=== PATIENT | male | born 1960 | race African-American/Black ===

== ENCOUNTER 2020-08-10 01:09 | Observation (INO) | payer OTHER ==
[2020-08-10 02:16] LABS: #Basophils 0.1 thou/uL (0.0-0.2); #Eosinphils 0.2 thou/uL (0.0-0.7); #Lymphocytes 1.4 thou/uL (1.20-3.40); #Monocytes 0.7 thou/uL (0.11-0.59); #Neutrophils 2.4 thou/uL (1.40-6.50); %Basophils 1.2 % (0.0-1.0); %Eosinophils 3.8 % (0.0-10.0); %Lymphocytes 29.4 % (21.0-51.0); %Monocytes 14.6 % (0.0-10.0); Hemoglobin 10.2 g/dL (14.0-18.0); Mean Corpuscular HGB CONC 30.9 g/dL (32.0-36.0); Mean Corpuscular Hemoglobin 24.9 pg (27.0-31.0); Mean Corpuscular Volume 80.5 fL (78.0-98.0); Mean Platelet Volume 11.1 fL (7.4-10.4); Platelet Count 212 thou/uL (130-400); RBC Distribution Width 18.3 % (11.5-14.5); Red Blood Cell (RBC) Count 4.09 mill/uL (4.70-6.10); White Blood Cell (WBC) Count 4.7 thou/uL (4.8-10.8)
[2020-08-10 02:35] LABS: ALT (SGPT) 27 U/L (8-55); AST (SGOT) 20 U/L (5-34); Acetaminophen Less than 6.0 mcg/mL (10.0-30.0); Albumin 3.9 g/dL (3.4-4.8); Alcohol Less than 10 mg/dL (Less than 10); Alkaline Phosphatase 60 U/L (40-110); Anion Gap 14 mmol/L (10-20); BUN (Urea Nitrogen) 9 mg/dL (8.4-25.7); Bilirubin, Total 0.2 mg/dL (0.2-1.2); Calc. Creatinine Clearance 0 mL/min (70-130); Calcium 9.2 mg/dL (7.8-10.44); Carbon Dioxide 23 mmol/L (23-31); Chloride 107 mmol/L (98-107); Globulin 3.4 g/dL (2.4-3.5); Glucose 101 mg/dL (80-115); Magnesium 1.9 mg/dL (1.6-2.6); Protein, Total 7.3 g/dL (5.8-8.1); Salicylate Less than 8.0 mg/dL (15.0-30.0); Sodium 140 mmol/L (136-145)
[2020-08-10] MEDS ORDERED: Aspirin 325 MG TAB ONE (02:54)
[2020-08-10 03:57] LABS: Bacteria/HPF 3+ HPF (None Seen); Bilirubin Negative (Negative); Blood, Urine Negative (Negative); Clarity Clear (Clear); Glucose, Urine (Dipstick) Normal (Negative); Ketone, Urine Negative (Negative); Leukocyte 250 Leu/uL (Negative); Nitrite Negative (Negative); Protein, Urine (Dipstick) Negative (Neg-Trace); RBC/HPF 0-3 HPF (0-3); Specific Gravity, Urine 1.005 (1.002-1.036); Squamous Epithelial 0-3 HPF (0-3); Urobilinogen Normal mg/dL (Less than 2); WBC/HPF 21-50 HPF (0-3); pH, Urine 6.5 (5.0-9.0)
[2020-08-10 04:22] LABS: Amphetamine Not Detected (NotDetected); Barbiturates Screen Not Detected (NotDetected); Benzodiazepine Screen Not Detected (NotDetected); Cocaine Metabolite Screen Not Detected (NotDetected); Medtox Control Line Valid? VALID (VALID); Medtox Reader # READER 1; Methadone Not Detected (NotDetected); Methamphetamine Not Detected (NotDetected); Opiate Screen Not Detected (NotDetected); Oxycodone Screen Not Detected (NotDetected); Phencyclidine (PCP) Not Detected (NotDetected); THC/Cannabinoid Screen Not Detected (NotDetected); Tricyclic Screen Not Detected (NotDetected)
[2020-08-10] MEDS ORDERED: cloNIDine 0.1 MG TAB PO PRN (04:35)
[2020-08-10] MEDS ORDERED: Guaifenesin DM 100-10/5 ML UDCUP PO PRN (04:35)
[2020-08-10] MEDS ORDERED: Labetalol HCl 100 MG/20 ML VIAL SLOW IVP PRN (04:35)
[2020-08-10] MEDS ORDERED: Promethazine HCl 12.5 MG in Sodium Chloride 0.9% 50 ML IVPB PRN (04:35)
[2020-08-10] MEDS ORDERED: Ondansetron PF 4 MG/2 ML Vial IVP PRN (04:35)
[2020-08-10] MEDS ORDERED: hydrALAZINE 20 MG/ML VIAL SLOW IVP PRN (04:35)
--- NOTE | 2020-08-10 04:36 | PDOC.HHP ---
Hospitalist HPI - History of Present Illness Syncope, altered mental status History of Present Illness: Patient is a 60 year old male with PMH HTN presenting from intermediate for altered mental status and syncope. Today, patient lost consciousness suddenly for a period of about 20-30 minutes, he reports this was observed by cellmates, he lay down to sleep and woke up and was found acting strange by his cell mates. The patient was unaware of where he was and was diaphoretic and found to be very hypertensive at the intermediate. Patient was altered until EMS got there and was brought to emergency department where he then cleared. Patient has no known seizure history, no history denies any history of alcoholism or alcohol withdrawal. he denies prodrome. Patient denies chest pain/shortness of breath/dizziness. BP was checked and was 211/100 at the time. He was alert and oriented in ED, nitropaste applied, patient given ASA, recommended for admission. Hospitalist ROS - Review of Systems Constitutional: denies: fever, chills, sweats, weakness, malaise, other Eyes: denies: pain, vision change, conjunctivae inflammation, eyelid inflammation, redness, other ENT: denies: ear pain, ear discharge, nose pain, nose discharge, nose congestion, mouth pain, mouth swelling, throat pain, throat swelling, other Respiratory: denies: cough, dry, shortness of breath, hemoptysis, SOB with excertion, pleuritic pain, sputum, wheezing, other Cardiovascular: denies: chest pain, palpitations, orthopnea, paroxysmal noc. dyspnea, edema, light headedness, other Gastrointestinal: denies: nausea, vomiting, abdominal pain, diarrhea, consti pation, melena, hematochezia, other Genitourinary: denies: dysuria, frequency, incontinence, hematuria, retention, other Musculoskeletal: denies: neck pain, shoulder pain, arm pain, back pain, hand pain, leg pain, foot pain, other Skin: denies: rash, lesions, danisha, bruising, other Neurological: reports: other (syncope). denies: weakness, numbness, incoordination, change in speech, confusion, seizures All other systems reviewed; all pertinent +/- noted in HPI/Subj Hospitalist History - Past Medical History Other Medical History: enlarged prostate, HTN - Past Surgical History Other Surgical History: PROSTATE REMOVAL, RIGHT ARM SX. - Family History Family History: reports: no pertinent history - Social History Smoking Status: Current some day smoker Alcohol: reports: None Drugs: reports: none - Exam General Appearance: NAD, awake alert Eye: PERRL, anicteric sclera ENT: normocephalic atraumatic, no oropharyngeal lesions, moist mucosa Neck: supple, symmetric, no JVD, no thyromegaly, no lymphadenopathy, no carotid bruit Heart: no murmur, no gallops, no rubs, normal peripheral pulses Heart - other findings: bradycardia Respiratory: CTAB, no wheezes, no rales, no ronchi, normal chest expansion, no tachypnea, normal percussion Gastrointestinal: soft, non-tender, non-distended, normal bowel sounds, no palpable masses, no hepatomegaly, no splenomegaly, no bruit Extremities: no cyanosis, no clubbing, no edema Skin: normal turgor, no lesions, no rashes Neurological: cranial nerve grossly intact, normal sensation to touch, no weakness, no focal deficits, no new deficit Musculoskeletal: normal tone, normal strength, no muscle wasting Psychiatric: normal affect, normal behavior, A&O x 3 Hospitalist Results - Labs Result Diagrams: 08/10/20 01:44 08/10/20 01:44 Lab results: WBC 4.7 thou/uL (4.8-10.8) L 08/10/20 01:44 Hgb 10.2 g/dL (14.0-18.0) L 08/10/20 01:44 Hct 32.9 % (42.0-52.0) L 08/10/20 01:44 MCV 80.5 fL (78.0-98.0) 08/10/20 01:44 Plt Count 212 thou/uL (130-400) 08/10/20 01:44 Neutrophils % 51.0 % (42.0-75.0) 08/10/20 01:44 Sodium 140 mmol/L (136-145) 08/10/20 01:44 Potassium 4.0 mmol/L (3.5-5.1) 08/10/20 01:44 Chloride 107 mmol/L (98-107) 08/10/20 01:44 Carbon Dioxide 23 mmol/L (23-31) 08/10/20 01:44 BUN 9 mg/dL (8.4-25.7) 08/10/20 01:44 Creatinine 0.81 mg/dL (0.7-1.3) 08/10/20 01:44 Glucose 101 mg/dL (80-115) 08/10/20 01:44 Calcium 9.2 mg/dL (7.8-10.44) 08/10/20 01:44 Total Bilirubin 0.2 mg/dL (0.2-1.2) 08/10/20 01:44 AST 20 U/L (5-34) 08/10/20 01:44 ALT 27 U/L (8-55) 08/10/20 01:44 Alkaline Phosphatase 60 U/L (40-110) 08/10/20 01:44 Troponin I Less than 0.010 ng/mL (< 0.028) 08/10/20 01:44 Serum Total Protein 7.3 g/dL (5.8-8.1) 08/10/20 01:44 Albumin 3.9 g/dL (3.4-4.8) 08/10/20 01:44 Urine Ketones Negative mg/dL (Negative) 08/10/20 03:15 Urine Blood Negative (Negative) 08/10/20 03:15 Urine Nitrite Negative (Negative) 08/10/20 03:15 Ur Leukocyte Esterase 250 Ahmet/uL (Negative) A 08/10/20 03:15 Urine RBC 0-3 HPF (0-3) 08/10/20 03:15 Urine WBC 21-50 HPF (0-3) A 08/10/20 03:15 Ur Squamous Epith Cells 0-3 HPF (0-3) 08/10/20 03:15 Urine Bacteria 3+ HPF (None Seen) A 08/10/20 03:15 Additional comment: VITAL SIGNS ThuAug 10, 2020 01:10 LYUDMILA Kaur, Selina BP: 161/88 Pulse: 51 Resp: 18 Temp: 98.1 (Oral) Pain: 0 O2 sat: 100 on (Room Air) Time: 08/10/2020 01:10. - EKG Interpretation EK LEAD EKG INTERPRETATION Incomplete right bundle branch block heart rate 49 QTc 404. Hospitalist H&P A/P - Plan Plan: Patient is a 60 year old male with PMH HTN presenting from intermediate for altered mental status and syncope. # altered mental status # syncope # uncontrolled hypertension # sinus bradycardia patient lost consciousness suddenly for 20-30 minutes, very hypertensive at the intermediate, no known seizure history, denies any history of alcoholism or alcohol withdrawal, ddx includes bradycardia, vasovagal, hypertensive encephalopathy - admit to floor - start norvasc, wean nitro as tolerated - follow up final CXR and head CT reports once finalized - follow up UDS and Urine culture once collected - echo - orthostatics, PT/OT - monitor telemetry, consider cardiology consult for bradycardia if no more obvious cause found # UTI - no symptoms, but will treat given syncope - start abx - follow urine culture results DVT/GI ppx
[2020-08-10] MEDS ORDERED: Electrolyte Replacement Protocol 1 EACH FS PRN (04:45)
[2020-08-10] MEDS ORDERED: cefTRIAXone\\ROCEPHIN 1 GM VIAL ONE (05:55)
[2020-08-10] MEDS ORDERED: cefTRIAXone\\ROCEPHIN 1 GM in Sodium Chloride 0.9% 100 ML IVPB SCH (06:30)
[2020-08-10] MEDS ORDERED: Magnesium 2 GM/50 ML 2 GM in Premix Bag 1 BAG IVPB SCH (06:45)
[2020-08-10] MEDS ORDERED: Magnesium 2 GM/50 ML BAG (IN WATER) ONE (06:49)
--- NOTE | 2020-08-10 07:31 | CT ---
PRELIMINARY REPORT/[facility]/EMERGENCY AFTER HOURS PROCEDURE EXAM: CT Head Without Intravenous Contrast. CLINICAL HISTORY: 60-year-old male with past medical history of BPH and hypertension presenting with acute altered ment al status occurred while at correction today. Patient has been in correction since the 6 and notes that he remembers everything until this evening. He lay down to sleep and woke up and was found acting niurka e by his cell mates. TECHNIQUE: Axial computed tomography images of the head/brain without intravenous contrast. COMPARISON: None provided. FINDINGS: BRAIN: No acute intraparenchymal hemorrhage. No mass lesion. No CT evidence for acute territorial infarct. N o midline shift or extra-axial collection. Arteriosclerosis. VENTRICLES: No hydrocephalus. ORBITS: The orbits are unremarkable. SINUSES AND MASTOIDS: The paranasal sinuses and mastoid air cells are clear. SOFT TISSUES: No significant facial or scalp soft tissue swelling evident. No radiopaque foreign body is seen. BONES: No acute skull fracture. IMPRESSION: No acute intracranial abnormality. ELECTRONICALLY SIGNED BY: Esteban Calzada MD Aug 10, 2020 2:37:34 AM CONTROL INSPECTOR This report is intended for review by the ordering physician only, in accordance of law. If you recei ve this report in error, please call [facility] at [phone]. FINAL REPORT Exam: Head CT without contrast HISTORY: Altered mental status COMPARISON: none FINDINGS: Hemorrhage: No intraparenchymal hemorrhage or extra-axial hematoma. Brain parenchyma: Cortical reeves-white matter differentiation is preserved. No mass effect or midline shift. Basilar cisterns are patent. Ventricular system: Ventricles and sulci are patent and symmetric. Calvarium: Intact. Sinuses and mastoid air cells: Adequate aeration. IMPRESSION: 1. This report is in agreement with initial report by [facility]. 2. No acute intracranial process. Transcribed Date/Time: 08/10/2020 7:39 AM
--- NOTE | 2020-08-10 07:51 | RAD ---
EXAM: Single view of the chest HISTORY: Altered mental status COMPARISON: None FINDINGS: Single view of the chest shows an enlarged cardiomediastinal silhouette. Atherosclerotic c alcifications are seen in the aorta. There is bilateral pulmonary vascular enlargement. There is no evidence of consolidation, mass, or pleural effusion. No acute osseous abnormality. IMPRESSION: Cardiomegaly
[2020-08-10] MEDS ORDERED: Famotidine 20 MG TAB ONE (08:50)
[2020-08-10] MEDS ORDERED: Amlodipine 5 MG TAB ONE (08:50)
[2020-08-10] MEDS: Amlodipine 10 MG TAB PO SCH (08:57)
[2020-08-10] MEDS: Famotidine 20 MG TAB PO SCH ×2 (08:58→21:07)
[2020-08-10] MEDS ORDERED: Acetaminophen 325 MG TAB ONE (11:23)
[2020-08-10 14:13] LABS: SARS-CoV-2 PCR by NAA Not Detected (NotDetected)
--- NOTE | 2020-08-10 17:16 | PDOC.HOSPP ---
- Subjective Encounter Date: 08/10/20 Encounter Time: 10:30 Subjective: pt up in bed no complains - Objective Vital Signs & Weight: Vital Signs (12 hours) Temp Pulse Pulse Pulse Resp BP BP 08/10/20 13:20 98.7 F 50 L 16 08/10/20 10:53 53 L 48 L 133/86 08/10/20 08:57 63 144/77 H BP BP Pulse Ox 08/10/20 13:20 130/71 95 08/10/20 10:53 141/76 H 08/10/20 08:57 Result Diagrams: 08/10/20 01:44 08/10/20 01:44 Hospitalist ROS - Review of Systems Cardiovascular: denies: chest pain, palpitations, orthopnea, paroxysmal noc. dyspnea, edema, light headedness, other Gastrointestinal: denies: nausea, vomiting, abdominal pain, diarrhea, constipation, melena, hematochezia, other Genitourinary: denies: dysuria, frequency, incontinence, hematuria, retention, o ther - Medication Medications: Active Medications Generic Name Dose Route Start Last Admin Trade Name Freq PRN Reason Stop Dose Admin Amlodipine Besylate 10 mg 08/10/20 09:00 08/10/20 08:57 Amlodipine 10 Mg Tab PO 10 mg DAILY JESSICA Administration Famotidine 20 mg 08/10/20 09:00 08/10/20 08:58 Famotidine 20 Mg Tab PO 20 mg BID JESSICA Administration Ceftriaxone Sodium 1 gm/ 100 mls @ 200 mls/hr 08/10/20 06:30 08/10/20 06:15 Sodium Chloride IVPB 100 mls Q24HR JESSICA Administration - Exam Neck: negative: supple, symmetric, no JVD, no thyromegaly, no lymphadenopathy, no carotid bruit, JVD Heart: negative: RRR, no murmur, no gallops, no rubs, normal peripheral pulses, irregular, diminshed peripheral pulses, murmur present, II/IV, III/IV Respiratory: negative: CTAB, no wheezes, no rales, no ronchi, normal chest expan mi, no tachypnea, normal percussion, rales, rhonchi, tachypneic, wheezes Gastrointestinal: negative: soft, non-tender, non-distended, normal bowel sounds, no palpable masses, no hepatomegaly, no splenomegaly, no bruit, no guarding, no rigidity, tender to palpation, distended, diminished bowl sounds, voluntary guarding Hosp A/P (1) Acute metabolic encephalopathy Code(s): G93.41 - METABOLIC ENCEPHALOPATHY Status: Acute (2) UTI (urinary tract infection) Status: Acute (3) HTN (hypertension) Code(s): I10 - ESSENTIAL (PRIMARY) HYPERTENSION Status: Acute - Plan will continue abx for now. will start pt on bp meds. He states that he had some prostate surgery for hematuria. He takes medications but does not know the names. will switch his abx to levaquin and possible discharge in am. He did not have syncope. He got up and was confused about where he was. Unlikely a seizure.
[2020-08-10 18:04] VITALS: BMI 25.6
[2020-08-10] MEDS ORDERED: Enoxaparin Sodium 40 MG/0.4 ML SYRINGE SC SCH (21:00)
[2020-08-10] MEDS: Acetaminophen 325 MG TAB PO PRN (21:07)
[2020-08-11 04:54] LABS: #Eosinphils 0.2 thou/uL (0.0-0.7); #Lymphocytes 1.9 thou/uL (1.20-3.40); #Monocytes 0.6 thou/uL (0.11-0.59); %Basophils 0.9 % (0.0-1.0); %Eosinophils 3.8 % (0.0-10.0); %Lymphocytes 39.8 % (21.0-51.0); %Monocytes 12.9 % (0.0-10.0); %Neutrophils 42.8 % (42.0-75.0); Hemoglobin 11.7 g/dL (14.0-18.0); Mean Corpuscular HGB CONC 31.4 g/dL (32.0-36.0); Mean Corpuscular Hemoglobin 25.2 pg (27.0-31.0); Mean Corpuscular Volume 80.3 fL (78.0-98.0); Mean Platelet Volume 10.9 fL (7.4-10.4); Platelet Count 225 thou/uL (130-400); RBC Distribution Width 18.7 % (11.5-14.5); Red Blood Cell (RBC) Count 4.64 mill/uL (4.70-6.10); White Blood Cell (WBC) Count 4.7 thou/uL (4.8-10.8)
[2020-08-11] MEDS ORDERED: cefTRIAXone\\ROCEPHIN 1 GM in Sodium Chloride 0.9% 100 ML IVPB SCH (05:00)
[2020-08-11 05:22] LABS: Anion Gap 15 mmol/L (10-20); BUN (Urea Nitrogen) 9 mg/dL (8.4-25.7); Calc. Creatinine Clearance 108 mL/min (70-130); Calcium 9.2 mg/dL (7.8-10.44); Carbon Dioxide 23 mmol/L (23-31); Chloride 107 mmol/L (98-107); Glucose 81 mg/dL (80-115); Magnesium 1.8 mg/dL (1.6-2.6); Sodium 141 mmol/L (136-145)
[2020-08-11] MEDS: Amlodipine 10 MG TAB PO SCH (08:57)
[2020-08-11] MEDS: Famotidine 20 MG TAB PO SCH (08:57)
[2020-08-11] MEDS: Acetaminophen 325 MG TAB PO PRN (08:58)
[2020-08-11] MEDS ORDERED: FLU VACC QS2020-21(6MOS UP)/PF 60 MCG/0.5 ML SYRINGE IM ONE (09:00)
[2020-08-11] MEDS ORDERED: Magnesium 2 GM/50 ML 2 GM in Premix Bag 1 BAG IVPB SCH (11:45)
--- NOTE | 2020-08-11 11:46 | PDOC.DS.DS ---
Provider - Provider Date of Admission: 08/10/20 03:45 Date of Discharge: 08/11/20 Admitting Provider: Jim Walker MD Primary Care Physician: OUT OF TOWN Course - Hospital Course Hospital Course: Discharge Diagnoses: 1. Acute metabolic encephalopathy vs hypertensive encephalopathy 2. Syncope 3. UTI 4. Anemia 5. Leukopenia Brief HPI: This is a 60 year old male with PMH of HTN [facility] status and syncope. The patient lost consciousness and was acting strange. He had no prodromal symptoms. His blood pressure was 211/100. CT head was normal. UA showed 21-50 WBC. He was given aspirin and admitted for further workup. Hospital Course: Acute encephalopathy likely from hypertensive urgency Syncope: EKG showed incomplete right bundle branch block, sinus bradycardia with heart rate of 49 and old septal infarct. Troponin was negative. Utox was negative and alcohol level was normal. The patient denied chest pain. He was started on amlodipine 10 mg with improvement in his blood pressure to 130-150. The patient had metoprolol 50 mg bid on his home medication list which he states he was not taking at home. His encephalopathy resolved at the time of discharge and he had no chest pain, dizziness or lightheadedness. He will be discharged on amlodipine 10 mg daily and should follow up with his PCP in a week. UTI: blood cultures were negative but urine culture grew 100,000 gram negative joel. The patient received IV ceftriaxone and was switched to IV levaquin on 08/11. He will be discharged on levaquin for 5 more days to complete a seven day course of antibiotics Pertinent Studies: CT brain: no acute disease Chest X ray: normal Resuscitation Status: 08/10/20 04:35 Resuscitation Status Routine Resuscitation Status: FULL: Full Resuscitation - Labs Lab Results: 08/11/20 04:21 08/11/20 04:21 Abnormal Lab Results - Last 48 hrs 08/10/20 01:44: Albumin/Globulin Ratio 1.1 L, Salicylates Less than 8.0 L, Acetaminophen Less than 6.0 L 08/10/20 01:44: WBC 4.7 L, RBC 4.09 L, Hgb 10.2 L, Hct 32.9 L, MCH 24.9 L, MCHC 30.9 L, RDW 18.3 H, MPV 11.1 H, Monocytes % 14.6 H, Basophils % 1.2 H, Monocytes # 0.7 H 08/10/20 03:15: Ur Leukocyte Esterase 250 A, Urine WBC 21-50 A, Urine Bacteria 3+ A 08/11/20 04:21: WBC 4.7 L, RBC 4.64 L, Hgb 11.7 L, Hct 37.3 L, MCH 25.2 L, MCHC 31.4 L, RDW 18.7 H, MPV 10.9 H, Monocytes % 12.9 H, Monocytes # 0.6 H Microbiology - Entire Visit 08/10/20 01:44 Venous blood - Left Arm Blood Culture - Preliminary Specimen has been received and culture in progress. No Growth to date. 08/10/20 02:01 Venous blood - Right Arm Blood Culture - Preliminary Specimen has been received and culture in progress. No Growth to date. 08/10/20 03:15 Urine clean catch Urine Culture - Preliminary Gram Negative Joel - Physical Exam Vitals: Vital Signs (12 hours) Temp Pulse Resp BP Pulse Ox 08/11/20 04:00 98.6 F 55 L 16 158/85 H 98 Weight Weight 188 lb 12.8 oz Physical Exam: The patient was seen and examined on the day of discharge. General: alert, awake, oriented times three CVS: RRR, no murmurs, rubs, gallops Lungs: CTAB Abdomen: +BS, soft, nontender, nondistended Extremities: no edema Problem - Discharge Plan Plan of Treatment: Follow up with PCP in a week. - Time spent with Patient (mins): 35 Plan - Discharge Medications Prescriptions: Levofloxacin [Levaquin] 750 mg PO DAILY #5 tab Amlodipine [Norvasc] 10 mg PO DAILY #30 tab Home Medications: Medication Instructions Recorded Confirmed Type Sennosides/Docusate Sodium 1 each PO DAILY 08/10/20 08/10/20 History [Docusate Sodium-Sennosides Tab] Tamsulosin HCl [Flomax] 0.4 mg PO DAILY 08/10/20 08/10/20 History Amlodipine [Norvasc] 10 mg PO DAILY #30 tab 08/11/20 Rx Levofloxacin [Levaquin] 750 mg PO DAILY #5 tab 08/11/20 Rx Allergies: No Known Drug Allergies Allergy (Verified 08/10/20 18:09) - Discharge Instructions Activity:: Activity as Tolerated Nourishment:: Heart Healthy Diet - Follow up Plan Referrals: [facility],OUT OF [Primary Care Provider] - Disposition: HOME Quality - Care Measures CORE MEASURES:: N/A
[2020-08-11 13:08] VITALS: BP 157/82; TEMP 98.7
== END 2020-08-11 13:00 ==
LOC: EEVIPCON 01:09 → ERS 01:09 → ERHOLD 03:45 → 2NO 13:20
PROVIDERS: ADMIT Internal Medicine; ATTEND Internal Medicine
DX: G93.41 Metabolic encephalopathy (principal); R55 Syncope and collapse; N39.0 Urinary tract infection, site not specified; I10 Essential (primary) hypertension; F17.210 Nicotine dependence, cigarettes, uncomplicated; R00.1 Bradycardia, unspecified; I45.10 Unspecified right bundle-branch block; N40.0 Benign prostatic hyperplasia without lower urinary tract symptoms; D64.9 Anemia, unspecified; D72.819 Decreased white blood cell count, unspecified; Z79.899 Other long term (current) drug therapy; Z20.822 Contact with and (suspected) exposure to COVID-19
CPT/HCPCS: 36415; 70450; 71045; 80048; 80053; 80306; 80307; 81003; 81015; 83735; 84443; 84484; 85025; 87040; 87086; 87635; 90471; 90662; 93005; 96372; 96374; 96375; G0008; G0378; J0696; J1650; J1956; J3475; J3490; U0003; U0005